=== PATIENT | male | born 1980 | race Caucasian/White ===

== ENCOUNTER 2017-06-22 02:06 | Observation (INO) | payer BC, OTHER ==
[2017-06-22] VITALS (7 sets, daily range): BP systolic 114–169; BP diastolic 65–86; PULSE 53–68; RESP 16–18; TEMP 97.4–98; O2SAT 96–100
[~2017-06-22] VITALS: Ht 170.2 cm; Wt 82.0 kg
--- NOTE | 2017-06-22 02:23 | PD ---
HPI Chief Complaint: Chest Pain Time Seen by Provider: 02:17 Travel History International Travel<30 days: No Contact w/Intl Traveler<30days: No Traveled to known affect area: No History of Present Illness HPI The patient is a 36 year old male who presents to the [facility] emergency department with a history of left shoulder pain that began 3 weeks ago. Yesterday it became worse. He reports that the pain raps around into his chest and causes intermittent chest pressure. He reports that he's had shortness of breath associated with it. He denies having any nausea or vomiting. He reports that he did have some diaphoresis/sweating at [employer] yesterday when he had worsening pain. He reports that he's been taking ibuprofen for the pain. His last ibuprofen dose was at 9:30 PM. The patient reports that since yesterday the pain is radiating into the left arm. He reports that he felt weak in the left arm when he tried to do pushups yesterday. He reports that he also has had numbness in the left arm. The numbness in the left arm began after 12:30 AM today. He reports that the numbness seems to be positional improved and improved with placing his arm in certain positions. On review of systems, the patient denies having any known recent fevers, abdominal pain, vomiting, diarrhea, urinary symptoms, numbness or tingling to his legs. He denies having any weakness in his legs. He denies having any headaches. He denies having any facial droop. He denies having any difficulty with word finding ability. He does report having a recent cough and congestion that resolved approximately a week ago. He denies any trauma or specific injury to his neck or back. He reports that he does frequently develop muscle spasms related to his workout regimen. He reports that he participates in [employer] 3 times per week. [facility] Past Medical History Narrative Medical The patient's past medical history is reportedly none. Immunizations Current: Yes Tetanus Vaccination: Unknown Influenza Vaccination: No Past Surgical History Narrative Surgical The patient's past surgical history is significant for an appendectomy. Family History Family Myocardial Infarction: No Social History Alcohol Use: No Tobacco Use: No Substance Use: No Allergies-Medications (Allergen,Severity, Reaction): Coded Allergies: No Known Allergies (Unverified , 06/22/17) Reported Meds & Prescriptions Reported Meds & Active Scripts Active No Active Prescriptions or Reported Medications Review of Systems Except as stated in HPI: all other systems reviewed are Neg General / Constitutional: No: Fever Eyes: No: Visual changes HENT: Positive: Neck Stiffness, Neck Pain, No: Headaches Cardiovascular: Positive: Chest Pain or Discomfort, Diaphoresis, Dyspnea on exertion Respiratory: Positive: Shortness of Breath Gastrointestinal: No: Nausea, Vomiting, Diarrhea, Abdominal Pain Genitourinary: No: Dysuria Musculoskeletal: No: Pain Skin: No Rash Neurologic: No: Weakness Psychiatric: No: Depression Endocrine: No: Polydipsia Hematologic/Lymphatic: No: Easy Bruising Physical Exam Narrative General: The patient is a well-developed well-nourished male in no acute distress. Head and Neck exam: Head is normocephalic atraumatic. Eyes: EOMI, pupils are equal round and reactive to light. Nose: Midline septum with pink mucous membranes Mouth: Dentition unremarkable. Moist mucus membranes. Posterior oropharynx is not erythematous. No tonsillar hypertrophy. Uvula midline. Airway patent. Neck: No palpable lymphadenopathy. No nuchal rigidity. No thyromegaly. No trapezius tenderness to palpation. No spinous process tenderness to palpation. No step-off or crepitus. No erythema or ecchymosis. The patient reports that the tingling sensations in his left arm and shooting pains in his left arm are worse with moving his neck around. Cardiovascular: Regular rate and rhythm without murmurs, gallops, or rubs. No pulse deficit to the extremities on simultaneous auscultation and palpation of his radial artery. Lungs: Clear to auscultation bilaterally. No wheezes, rhonchi, or rales. Abdomen: Soft, without tenderness to palpation in all 4 quadrants of the abdomen. No guarding, rebound, or rigidity. Normal bowel sounds are audible. No tenderness on palpation of McBurney's point. Extremities: No clubbing, cyanosis, or edema. 2+ pulses in all 4 extremities. No calf tenderness on palpation. Back: No spinous process tenderness to palpation. No step-off or crepitus. No erythema or ecchymosis. No costovertebral angle tenderness to palpation. Neurologic Exam: Cranial nerves 2-12 were intact on exam. Strength is 5/5 in all 4 extremities. No sensory deficits noted. Skin Exam: No rash noted. Intact skin that is warm and dry. Data Data Last Documented VS Vital Signs Date Time Temp Pulse Resp B/P (MAP) Pulse Ox O2 Delivery O2 Flow Rate FiO2 06/22/17 04:00 68 18 138/85 (102) 100 Room Air 06/22/17 02:09 98.0 Orders Orders Electrocardiogram (06/22/17 02:17) B-Type Natriuretic Peptide (06/22/17 02:17) Ckmb (Isoenzyme) Profile (06/22/17 02:17) Complete Blood Count With Diff (06/22/17 02:17) Comprehensive Metabolic Panel (06/22/17 02:17) D-Dimer (06/22/17 02:17) Magnesium (Mg) (06/22/17 02:17) Prothrombin Time / Inr (Pt) (06/22/17 02:17) Act Partial Throm Time (Ptt) (06/22/17 02:17) Troponin I (06/22/17 02:17) Lipase (06/22/17 02:17) Chest, Single Ap (06/22/17 02:17) Ecg Monitoring (06/22/17 02:17) Bilateral Bp Monitoring (06/22/17 02:17) Iv Access Insert/Monitor (06/22/17 02:17) Oximetry (06/22/17 02:17) Oxygen Administration (06/22/17 02:17) Sodium Chloride 0.9% Flush (Ns Flush) (06/22/17 02:30) CKMB (06/22/17 02:22) CKMB% (06/22/17 02:22) Ct Brain W/O Iv Contrast(Rout) (06/22/17 03:14) Ct Cerv Spine W/O Contrast (06/22/17 03:14) Morphine Inj (Morphine Inj) (06/22/17 03:15) Ondansetron Inj (Zofran Inj) (06/22/17 03:15) Aspirin Chew (Aspirin Chew) (06/22/17 03:15) Cyclobenzaprine (Flexeril) (06/22/17 04:30) Admit Order (Ed Use Only) (06/22/17 04:27) Labs Laboratory Tests Test 06/22/17 02:22 White Blood Count 9.8 TH/MM3 Red Blood Count 4.90 MIL/MM3 Hemoglobin 14.6 GM/DL Hematocrit 43.0 % Mean Corpuscular Volume 87.8 FL Mean Corpuscular Hemoglobin 29.9 PG Mean Corpuscular Hemoglobin Concent 34.0 % Red Cell Distribution Width 12.6 % Platelet Count 237 TH/MM3 Mean Platelet Volume 9.2 FL Neutrophils (%) (Auto) 57.0 % Lymphocytes (%) (Auto) 32.7 % Monocytes (%) (Auto) 7.2 % Eosinophils (%) (Auto) 2.6 % Basophils (%) (Auto) 0.5 % Neutrophils # (Auto) 5.6 TH/MM3 Lymphocytes # (Auto) 3.2 TH/MM3 Monocytes # (Auto) 0.7 TH/MM3 Eosinophils # (Auto) 0.3 TH/MM3 Basophils # (Auto) 0.1 TH/MM3 CBC Comment DIFF FINAL Differential Comment Prothrombin Time 10.7 SEC Prothromb Time International Ratio 1.1 RATIO Activated Partial Thromboplast Time 25.0 SEC D-Dimer Quantitative (PE/DVT) LESS THAN 0.19 MG/L FEU Blood Urea Nitrogen 15 MG/DL Creatinine 0.97 MG/DL Random Glucose 103 MG/DL Total Protein 6.9 GM/DL Albumin 3.7 GM/DL Calcium Level 8.5 MG/DL Magnesium Level 2.0 MG/DL Alkaline Phosphatase 56 U/L Aspartate Amino Transf (AST/SGOT) 16 U/L Alanine Aminotransferase (ALT/SGPT) 35 U/L Total Bilirubin 0.3 MG/DL Sodium Level 143 MEQ/L Potassium Level 4.0 MEQ/L Chloride Level 108 MEQ/L Carbon Dioxide Level 27.5 MEQ/L Anion Gap 8 MEQ/L Estimat Glomerular Filtration Rate 87 ML/MIN Total Creatine Kinase 192 U/L Creatine Kinase MB 2.1 NG/ML Troponin I LESS THAN 0.02 NG/ML B-Type Natriuretic Peptide 6 PG/ML Lipase 186 U/L MDM Medical Decision Making Medical Screen Exam Complete: Yes Emergency Medical Condition: Yes Medical Record Reviewed: Yes Interpretation(s) Last Impressions Head CT 06/22/17313 Signed Impressions: Service Date/Time: Thursday, June 22, 2017 03:12 - CONCLUSION: 1. No evidence of acute intracranial pathology. No masses are identified. Kelvin Aggarwal MD Cervical Spine CT 06/22/17313 Signed Impressions: Service Date/Time: Thursday, June 22, 2017 03:13 - CONCLUSION: 1. Moderate degenerative changes as described above. There is no evidence of acute fracture. Kelvin Aggarwal MD Chest X-Ray 06/22/17 0217 Signed Impressions: Service Date/Time: Thursday, June 22, 2017 02:21 - CONCLUSION: 1. No acute cardiopulmonary disease. Kelvin Aggarwal MD Differential Diagnosis Cervical radiculopathy, versus intracranial mass, versus acute coronary syndrome , versus peripheral neuropathy Narrative Course During the course of the patients emergency department visit, the patients history, examination, and differential diagnosis were reviewed with the patient. The patient was placed on a spray gun sizer with oximetry and frequent blood pressure monitoring. The patient had IV access obtained and blood work sent for analysis. The patient had an ECG done on arrival that shows a sinus rhythm with a heart rate of 60, incomplete right bundle branch block is noted. No acute ST segment elevation, T waves are inverted in V1, QRS duration is 110 ms, QTC 371 ms. The patient was initially provided aspirin 324 mg by mouth 1, morphine 4 mg IV , Zofran 4 mg IV. The patients laboratory studies were reviewed and remarkable for a CBC that is within normal limits, CMP is remarkable for chloride of 108, GFR of 87, initial cardiac enzymes are negative, BNP 6, lipase 186, PT PTT within normal limits, d- dimer less than 0.19 decreasing the likelihood of pulmonary embolism in this patient with no other significant risk factors. Radiology studies were reviewed and remarkable for a chest x-ray that shows no evidence of acute cardiopulmonary disease. CT scan of the brain shows no evidence of acute intracranial abnormality. No masses are identified. CT scan of the C-spine shows moderate degenerative changes worse at C5-C6. The patient continued to have discomfort and was given Flexeril 10 mg by mouth 1. The patient on reassessment continued to have discomfort and was given Decadron 4 mg IV, along with hydrocodone 10 mg by mouth 1. The patient was agreeable with the plan to proceed with admission to the chest pain center for rule out serial cardiac enzyme protocol given the chest pressure , shortness of breath, and diaphoresis he began to experience yesterday. I suspect that the tingling sensations and pain in his left arm are related to a cervical radiculopathy from degenerative changes of the cervical spine. The patients results were discussed with the patient, including the plan of care. I explained that further testing and/ or monitoring is indicated based on the patients history, examination, and/ or laboratory findings. Therefore, I recommended admission for additional evaluation. The patient expressed understanding and was agreeable with this plan. The patient was admitted to the hospital in stable condition and sent to a bed under the care of the chest pain center. Diagnosis Primary Impression: Chest pain, rule out acute myocardial infarction Additional Impressions: Left arm pain Neck pain Cervical radiculopathy Admitting Information Admitting Physician Requests: Observation Scripts No Active Prescriptions or Reported Meds Radha Olguin MD Jun 22, 2017 02:23
[2017-06-22] MEDS ORDERED: SODIUM CHLORIDE 0.9% FLUSH 10 ML FLUSH IVF PRN (02:30)
[2017-06-22 02:35] LABS: AUTOMATED NEUTROPHIL # 5.6 TH/MM3 (1.8-7.7); BASOPHIL # 0.1 TH/MM3 (0-0.2); BASOPHIL % 0.5 % (0.0-2.0); EOSINOPHIL # 0.3 TH/MM3 (0-0.4); EOSINOPHIL % 2.6 % (0.0-4.0); HEMOGLOBIN 14.6 GM/DL (13.0-17.0); LYMPH % 32.7 % (9.0-44.0); LYMPHOCYTE # 3.2 TH/MM3 (1.0-4.8); MEAN CELL VOLUME 87.8 FL (80.0-100.0); MEAN CORPUSCULAR HEMOGLOBIN 29.9 PG (27.0-34.0); MEAN PLATELET VOLUME 9.2 FL (7.0-11.0); MONO % 7.2 % (0.0-8.0); MONOCYTE # 0.7 TH/MM3 (0-0.9); PLATELET COUNT 237 TH/MM3 (150-450); RED CELL DISTRIBUTION WIDTH 12.6 % (11.6-17.2); WHITE BLOOD COUNT 9.8 TH/MM3 (4.0-11.0)
[2017-06-22 02:47] LABS: ALBUMIN 3.7 GM/DL (3.4-5.0); ALT (GPT) 35 U/L (12-78); AST (GOT) 16 U/L (15-37); BICARBONATE 27.5 MEQ/L (21.0-32.0); BLOOD UREA NITROGEN 15 MG/DL (7-18); CALCIUM 8.5 MG/DL (8.5-10.1); CHLORIDE 108 MEQ/L (98-107); CREATININE 0.97 MG/DL (0.60-1.30); GLOMERULAR FILTRATION RATE 87 ML/MIN (>89); GLUCOSE,RANDOM 103 MG/DL (74-106); LIPASE 186 U/L (73-393); SODIUM (NA) 143 MEQ/L (136-145)
[2017-06-22 02:48] LABS: INTERNATIONAL NORMALIZED RATIO 1.1 RATIO; PROTHROMBIN TIME - PATIENT 10.7 SEC (9.8-11.6)
[2017-06-22 02:49] LABS: D-DIMER LESS THAN 0.19 MG/L FEU (0.00-0.50)
[2017-06-22 02:51] LABS: ALKALINE PHOSPHATASE 56 U/L (45-117); TOTAL BILIRUBIN ADULT 0.3 MG/DL (0.2-1.0); TOTAL PROTEIN 6.9 GM/DL (6.4-8.2); TROPONIN I LESS THAN 0.02 NG/ML (0.02-0.05)
[2017-06-22] MEDS ORDERED: MORPHINE SULFATE 2 MG/ML INJ IV PUSH ONE (03:15)
[2017-06-22] MEDS ORDERED: ONDANSETRON HCL 4 MG/2 ML VIAL IV PUSH ONE (03:15)
[2017-06-22] MEDS ORDERED: ASPIRIN 81 MG CHEW TAB CHEW ONE (03:15)
--- NOTE | 2017-06-22 03:18 | RADRPT ---
EXAM DATE/TIME: 06/22/2017 02:21 [facility] COMPARISON: No previous studies available for comparison. INDICATIONS : Left upper lateral chest pain radiating from the back. MEDICAL HISTORY : None. SURGICAL HISTORY : None. ENCOUNTER: Initial ACUITY: 1 day PAIN SCORE: 3/10 LOCATION: Left upper chest FINDINGS: A single view of the chest demonstrates the lungs to be symmetrically aerated without evidence of mas s, infiltrate or effusion. The cardiomediastinal contours are unremarkable. Osseous structures are intact. CONCLUSION: 1. No acute cardiopulmonary disease. Kelvin Aggarwal MD on June 22, 2017 at 3:16 Board Certified Radiologist. This report was verified electronically.
--- NOTE | 2017-06-22 04:06 | RADRPT ---
EXAM DATE/TIME: 06/22/2017 03:12 [facility] COMPARISON: No previous studies available for comparison. INDICATIONS : Left sided neck and shoulder pain with no known injury. RADIATION DOSE: 69.15 CTDIvol (mGy) MEDICAL HISTORY : None SURGICAL HISTORY : None. ENCOUNTER: Initial ACUITY: 1 day PAIN SCALE: 6/10 LOCATION: cranial TECHNIQUE: Multiple contiguous axial images were obtained of the head. Using automated exposure control and adj ustment of the mA and/or kV according to patient size, radiation dose was kept as low as reasonably a chievable to obtain optimal diagnostic quality images. DICOM format image data is available electro nically for review and comparison. FINDINGS: Noncontrast axial head CT demonstrates the ventricles to be normal in size and configuration with a n ormal sulcal pattern. No acute intracranial hemorrhage, acute cortical infarction, mass or midline sh ift is seen. Posterior fossa structures are unremarkable. Bone windows are unremarkable. CONCLUSION: 1. No evidence of acute intracranial pathology. No masses are identified. eKlvin Aggarwal MD on June 22, 2017 at 4:04 Board Certified Radiologist. This report was verified electronically.
--- NOTE | 2017-06-22 04:08 | RADRPT ---
EXAM DATE/TIME: 06/22/2017 03:13 [facility] COMPARISON: No previous studies available for comparison. INDICATIONS : Left sided neck and shoulder pain with no known injury. RADIATION DOSE: 39.52 CTDIvol (mGy) MEDICAL HISTORY : None SURGICAL HISTORY : None. ENCOUNTER: Initial ACUITY: 1 day PAIN SCALE: 6/10 LOCATION: neck TECHNIQUE: Volumetric scanning of the cervical spine was performed. Multiplanar reconstructions in the sagittal, coronal and oblique axial planes were performed. Using automated exposure control and adjustment o f the mA and/or kV according to patient size, radiation dose was kept as low as reasonably achievable to obtain optimal diagnostic quality images. DICOM format image data is available electronically f or review and comparison. FINDINGS: CT of the cervical spine was performed in sagittal and axial planes. There is straightening of the no rmal cervical lordosis which may be secondary positioning or spasm. No focal areas of marrow replacem ent are identified. The craniocervical junction appears normal. Axial images were performed from C2-C 3 through C7-T1. There is multilevel disc space narrowing and marginal osteophyte formation maximal a t C5-C6. C2-C3: No significant abnormalities identified. C3-C4: No significant abnormalities identified. C4-C5: No significant abnormalities identified. C5-C6: A small central protrusion is present impinging on the thecal sac but not significantly deforming the cord. There is no significant spinal canal stenosis. C6-C7: No significant abnormalities identified. C7-T1: No significant abnormalities identified. CONCLUSION: 1. Moderate degenerative changes as described above. There is no evidence of acute fracture. Kelvin Aggarwal MD on June 22, 2017 at 4:05 Board Certified Radiologist. This report was verified electronically.
[2017-06-22] MEDS ORDERED: ONDANSETRON HCL 4 MG/2 ML VIAL IV PUSH PRN (04:30)
[2017-06-22] MEDS ORDERED: SODIUM CHLORIDE 0.9% FLUSH 10 ML FLUSH IV FLUSH PRN (04:30)
[2017-06-22] MEDS ORDERED: ACETAMINOPHEN/HYDROcodone 325 MG/7.5 MG TAB PO PRN (04:30)
[2017-06-22] MEDS ORDERED: CYCLOBENZAPRINE HCL 10 MG TAB PO ONE (04:30)
[2017-06-22] MEDS ORDERED: DEXAMETHASONE SOD PHOS 4 MG/ML VIAL IV PUSH ONE (05:00)
[2017-06-22] MEDS ORDERED: ACETAMINOPHEN/HYDROcodone 325 MG/5 MG TAB PO ONE (05:00)
[2017-06-22 06:38] LABS: TROPONIN I LESS THAN 0.02 NG/ML (0.02-0.05)
[2017-06-22] MEDS ORDERED: KETOROLAC TROMETHAMINE 30 MG/ML (IVP) VIAL IVP ONE (08:00)
[2017-06-22 08:49] LABS: TROPONIN I LESS THAN 0.02 NG/ML (0.02-0.05)
[2017-06-22] MEDS ORDERED: SODIUM CHLORIDE 0.9% FLUSH 10 ML FLUSH IV FLUSH SCH (09:00)
--- NOTE | 2017-06-22 09:16 | HHI.DCPOC ---
Discharge Care Plan Diagnosis: (1) Chest pain (2) Cervical radiculopathy (3) Neck pain Goals to Promote Your Health * To prevent worsening of your condition and complications * To maintain your health at the optimal level Directions to Meet Your Goals Take your medications as prescribed Follow your dietary instruction Follow activity as directed Keep your appointments as scheduled Take your immunizations and boosters as scheduled If your symptoms worsen call your PCP, if no PCP go to Urgent Care Center or Emergency Room Smoking is Dangerous to Your Health. Avoid second hand smoke Call the 24-hour hour crisis hotline for domestic abuse at Anastacio Mireles Jun 22, 2017 09:16
--- NOTE | 2017-06-22 09:25 | HHI.HP ---
[facility] Primary Care Physician Wu Lopez MD Chief Complaint "I think I pinched nerve in my neck" History of Present Illness This is a 36-year-old male that presents to ED via private vehicle stating "I think I pinched a nerve in my neck." States that he noticed a knot in his upper back while doing [employer] last week. Was having a little discomfort in his neck. However yesterday he started to have the discomfort in his neck radiating down his left arm which remained all day long. It is worsened with certain movements. Helped by holding the arm in certain positions. Denies trauma. States that last night discomfort began to radiate from his left arm and neck and into the upper left chest and then his left arm went numb. He still able to move it. It was not week but it was numb. This concerned him and he came to the ED. States "I think I patient might neck but when I said it radiated to my chest they sent me here." Denies other type chest discomfort. States he works out with [employer] 3 times a week and never has chest discomfort. Denies family history of heart disease. Lifetime nonsmoker. Denies history of hypertension, hyperlipidemia, or diabetes. Denies recent illness. Review of Systems General: Patient denies fevers, chills recent, and recent travel HEENT: Patient denies headache, sore throat, difficulty swallowing. Cardiovascular: Has the chest discomfort as mentioned above. Denies sensation of heart beating rapidly or irregularly. No syncope. Denies diaphoresis. Respiratory: Denies shortness of breath or inspirational chest discomfort. Denies coughing wheezing or hemoptysis. GI: Patient denies nausea, vomiting, diarrhea, abdominal pain, bloody stools. Musculoskeletal: Complains of neck discomfort with radiating pain down his left arm and left upper chest. Denies trauma. Denies calf pain or edema. Neurovascular: Left arm felt numb last night prompting him to come to the ED which has resolved. Patient denies tingling or weakness in extremities. Denies headache. Endocrine: Denies polyuria and polydipsia. Hematologic: Denies easy bruising. Skin: Denies rash or itching. Past Family Social History Allergies: Coded Allergies: No Known Allergies (Unverified , 06/22/17) Past Medical History Denies hypertension, hyperlipidemia, diabetes, and known CAD. Past Surgical History Appendectomy. Reported Medications Reported Meds & Active Scripts Active No Active Prescriptions or Reported Medications Active Ordered Medications Current Medications Medications (Trade) Dose Ordered Sig/Tito Route Start Time Stop Time Status Last Admin (NS Flush) 2 ml UNSCH PRN IV FLUSH 06/22/17 04:30 (NS Flush) 2 ml BID IV FLUSH 06/22/17 09:00 06/22/17 08:42 (Glade 7.5-325 Mg) 1 tab Q4H PRN PO 06/22/17 04:30 (Zofran Inj) 4 mg Q6H PRN IV PUSH 06/22/17 04:30 Family History Denies family history of CAD. Social History Nonsmoker. Denies alcohol or illicit drugs. Physical Exam Vital Signs Vital Signs Date Time Temp Pulse Resp B/P (MAP) Pulse Ox O2 Delivery O2 Flow Rate FiO2 06/22/17 05:47 97.4 53 16 127/84 (98) 99 06/22/17 05:08 06/22/17 04:45 100 06/22/17 04:00 68 18 138/85 (102) 100 Room Air 06/22/17 02:25 100 Room Air 06/22/17 02:25 100 Room Air 06/22/17 02:25 169/86 (113) 06/22/17 02:09 98.0 63 16 135/65 (88) 98 Room Air Physical Exam GENERAL: This is a well-nourished, well-developed patient, in no apparent distress. Patient speaks in clear complete sentences. Patient is pleasant. HEENT: Head is atraumatic and normocephalic. Neck is supple without lymphadenopathy and trachea is midline. No JVD or carotid bruits. CARDIOVASCULAR: Regular rate and rhythm without murmurs, gallops, or rubs. RESPIRATORY: Clear to auscultation. Breath sounds equal bilaterally. No wheezes , rales, or rhonchi. Chest wall is nontender. No use of accessory muscles. GASTROINTESTINAL: Abdomen is nontender, nondistended. Abdomen soft. No obvious pulsatile mass or bruit. No CVA tenderness. Strong femoral pulses bilaterally. Normal bowel sounds in all quadrants. MUSCULOSKELETAL: Discomfort with movement of neck. No spinous process point tenderness. Patient is moving upper and lower extremities freely. No calf tenderness or edema, no Homans sign. Strong pulses in upper and lower extremities. NEUROLOGICAL: Patient is alert and oriented. Cranial nerves 2-12 are grossly intact. No focal deficits and speech is clear. SKIN: No rash and turgor is normal. Laboratory Laboratory Tests Test 06/22/17 02:22 06/22/17 05:50 06/22/17 08:06 White Blood Count 9.8 Red Blood Count 4.90 Hemoglobin 14.6 Hematocrit 43.0 Mean Corpuscular Volume 87.8 Mean Corpuscular Hemoglobin 29.9 Mean Corpuscular Hemoglobin Concent 34.0 Red Cell Distribution Width 12.6 Platelet Count 237 Mean Platelet Volume 9.2 Neutrophils (%) (Auto) 57.0 Lymphocytes (%) (Auto) 32.7 Monocytes (%) (Auto) 7.2 Eosinophils (%) (Auto) 2.6 Basophils (%) (Auto) 0.5 Neutrophils # (Auto) 5.6 Lymphocytes # (Auto) 3.2 Monocytes # (Auto) 0.7 Eosinophils # (Auto) 0.3 Basophils # (Auto) 0.1 CBC Comment DIFF FINAL Differential Comment Prothrombin Time 10.7 Prothromb Time International Ratio 1.1 Activated Partial Thromboplast Time 25.0 D-Dimer Quantitative (PE/DVT) LESS THAN 0.19 Blood Urea Nitrogen 15 Creatinine 0.97 Random Glucose 103 Total Protein 6.9 Albumin 3.7 Calcium Level 8.5 Magnesium Level 2.0 Alkaline Phosphatase 56 Aspartate Amino Transf (AST/SGOT) 16 Alanine Aminotransferase (ALT/SGPT) 35 Total Bilirubin 0.3 Sodium Level 143 Potassium Level 4.0 Chloride Level 108 Carbon Dioxide Level 27.5 Anion Gap 8 Estimat Glomerular Filtration Rate 87 Total Creatine Kinase 192 175 231 Creatine Kinase MB 2.1 2.3 2.9 Troponin I LESS THAN 0.02 LESS THAN 0.02 LESS THAN 0.02 B-Type Natriuretic Peptide 6 Lipase 186 Result Diagram: 06/22/1722106/22/17221 Imaging Last [address] 06/22/17313 Signed Impressions: Service Date/Time: Thursday, June 22, 2017 03:12 - CONCLUSION: 1. No evidence of acute intracranial pathology. No masses are identified. Kelvin Aggarwal MD Cervical Spine CT 06/22/17313 Signed Impressions: Service Date/Time: Thursday, June 22, 2017 03:13 - CONCLUSION: 1. Moderate degenerative changes as described above. There is no evidence of acute fracture. Kelvin Aggarwal MD Chest X-Ray 06/22/17 0217 Signed Impressions: Service Date/Time: Thursday, June 22, 2017 02:21 - CONCLUSION: 1. No acute cardiopulmonary disease. Kelvin Aggarwal MD Course EKG is a sinus rhythm with incomplete right bundle branch block and PVCs. No significant ST segment depressions or elevations. Caprini VTE Risk Assessment Caprini VTE Risk Assessment: No/Low Risk (score <= 1) Caprini Risk Assessment Model Point Value = 1 Point Value = 2 Point Value = 3 Point Value = 5 Age 41-60 Minor surgery BMI > 25 kg/m2 Swollen legs Varicose veins or History of unexplained or recurrent spontaneous Oral contraceptives or hormone replacement Sepsis (< 1 month) Serious lung disease, including pneumonia (< 1 month) Abnormal pulmonary function Acute myocardial infarction Congestive heart failure (< 1 month) History of inflammatory bowel disease Medical patient at bed rest Age 61-74 Arthroscopic surgery Major open surgery (> 45 min) Laparoscopic surgery (> 45 min) Malignancy Confined to bed (> 72 hours) Immobilizing plaster cast Central venous access Age >= 75 History of VTE Family history of VTE Factor V Leiden Prothrombin [id number] Lupus anticoagulant Anticardiolipin antibodies Elevated serum homocysteine Heparin-induced thrombocytopenia Other congenital or acquired thrombophilia Stroke (< 1 month) Elective arthroplasty Hip, pelvis, or leg fracture Acute spinal cord injury (< 1 month) Prophylaxis Regimen Total Risk Factor Score Risk Level Prophylaxis Regimen 0-1 Low Early ambulation 2 Moderate Order ONE of the following: *Sequential Compression Device (SCD) *Heparin 5000 units SQ BID 3-4 Higher Order ONE of the following medications: *Heparin 5000 units SQ TID *Enoxaparin/Lovenox 40 mg SQ daily (WT < 150 kg, CrCl > 30 mL/min) *Enoxaparin/Lovenox 30 mg SQ daily (WT < 150 kg, CrCl > 10-29 mL/min) *Enoxaparin/Lovenox 30 mg SQ BID (WT < 150 kg, CrCl > 30 mL/min) AND/OR *Sequential Compression Device (SCD) 5 or more Highest Order ONE of the following medications: *Heparin 5000 units SQ TID (Preferred with Epidurals) *Enoxaparin/Lovenox 40 mg SQ daily (WT < 150 kg, CrCl > 30 mL/min) *Enoxaparin/Lovenox 30 mg SQ daily (WT < 150 kg, CrCl > 10-29 mL/min) *Enoxaparin/Lovenox 30 mg SQ BID (WT < 150 kg, CrCl > 30 mL/min) AND *Sequential Compression Device (SCD) Assessment and Plan Assessment and Plan * Cervical radiculopathy: Patient will be given IV Toradol 1. He should use [id number] anti-inflammatories. He was seen by Dr. Kelvin Bird of cardiology and the chest and [place]. the cardiac related. he'll be discharged home at this time with instructions to follow-up with pcp and return to ed for interval issues. * Chest pain: Patient describes a discomfort radiating from the neck and arm into the upper chest. Not found to be cardiac related. Patient was seen by Dr. Kelvin Bird of cardiology. Likely related to radiculopathy and will be discharged home at this time with instructions to follow-up with PCP and return to ED for interval issues. Patient is stable time. He is agreeable to this plan. Anastacio Mireles Jun 22, 2017 09:25
--- NOTE | 2017-06-23 07:54 | EKG ---
Date Performed: 06/22/2017 Time Performed: 02:19:31 PTAGE: 36 years EKG: Sinus rhythm INCOMPLETE RIGHT BUNDLE BRANCH BLOCK BORDERLINE ECG NO PREVIOUS TRACING DOCTOR: Daysi Sky Interpretating Date/Time 06/23/2017 07:53:40
--- NOTE | 2017-06-23 07:56 | EKG ---
Date Performed: 06/22/2017 Time Performed: 06:03:16 PTAGE: 36 years EKG: Sinus rhythm WITH OCCASIONAL VENTRICULAR PREMATURE COMPLEXES INCOMPLETE RIGHT BUNDLE BRANCH BLOCK BORDERLINE ECG Since PREVIOUS TRACING , no significant change noted PREVIOUS TRACIN06/22/2017 02.19 DOCTOR: Daysi Sky Interpretating Date/Time 06/23/2017 07:55:10
== END 2017-06-22 12:29 | disposition home or self-care (01) ==
LOC: NEPE 02:06 → NEDA 04:28 → NEPHCDU 05:27
PROVIDERS: ADMIT Internal Medicine Interventional Cardiology; ATTEND Internal Medicine Interventional Cardiology
DX: R07.89 Other chest pain (principal); M54.12 Radiculopathy, cervical region; R06.02 Shortness of breath; I45.10 Unspecified right bundle-branch block; R94.31 Abnormal electrocardiogram [ECG] [EKG]; Z79.82 Long term (current) use of aspirin
CPT/HCPCS: 70450; 71045; 72125; 80053; 82550; 82552; 83690; 83735; 83880; 84484; 85025; 85379; 85610; 85730; 93005; 96374; 96375; 99285; G0378; J1100; J1885; J2270; J2405